=== PATIENT | male | born 1990 | race Caucasian/White ===

== ENCOUNTER 2019-07-21 08:04 | Emergency (ER) | payer OTHER ==
[~2019-07-21] VITALS: Ht 182.9 cm; Wt 99.8 kg
== END 2019-07-21 10:37 | disposition home or self-care (01) ==
LOC: ER 08:04 → EDSEX 08:04 → ER 10:37
DX: S01.111A Laceration without foreign body of right eyelid and periocular area, initial encounter (principal); F17.220 Nicotine dependence, chewing tobacco, uncomplicated; Z88.0 Allergy status to penicillin; W45.8XXA Other foreign body or object entering through skin, initial encounter
CPT/HCPCS: 12053; 99282-25

== ENCOUNTER → 2022-10-07 | Outpatient (CLI) | payer OTHER ==
[2022-10-08 08:13] LABS: HBSAG SCREEN Negative (Negative); HCV ANTIBODY Non Reactive (Non Reactive); HIV AB/P24 AG SCREEN Non Reactive (Non Reactive)
[2022-10-09 19:09] LABS: CHLAMYDIA BY NAA Negative (Negative); GONOCOCCUS BY NAA Negative (Negative); TRICH VAG BY NAA Negative (Negative)
== END | disposition home or self-care (01) ==
LOC: LAB 13:30 → LAB SHORT 13:30
PROVIDERS: Registered Nurse Community Health
DX: Z11.3 Encounter for screening for infections with a predominantly sexual mode of transmission (principal); Z11.59 Encounter for screening for other viral diseases
CPT/HCPCS: 86592; 86695; 86696; 86803; 87340; 87389